=== PATIENT | female | born 1985 | race Caucasian/White ===

== ENCOUNTER 2016-04-06 10:52 | Emergency (ER) | payer OTHER ==
--- NOTE | 2016-04-06 11:28 | EDPHY ---
H & P Stated Complaint: tripped on ice hit back of head/nauseated/no loc HPI/ROS: CHIEF COMPLAINT: fall, head injury HISTORY OF PRESENT ILLNESS: slipped on the ice this morning striking the occiput. She was walking to the parking garage when she fell. She denies any loss of consciousness. At that time she felt lightheaded but did not have a syncopal episode. Since then she has had some headache, low back pain, muscle spasm and nausea. No vomiting. No weakness. No confusion. No visual changes. No hematoma, laceration or abrasion. She was concerned as her coworkers felt that she did not look right to them. At this time her pain is mild to moderate. It is worse with palpation. It does not radiate. There is soft tissue neck and back pain but no bony tenderness of the area. No use of blood thinners. No other associated complaints or modifying factors. REVIEW OF SYSTEMS: Ten systems reviewed and are negative unless otherwise noted in the HPI EXAMINATION General Appearance: Alert, no distress Head: normocephalic, atraumatic . No Cornejo sign. No raccoon eyes. No contusion, abrasion or laceration. No hematomas Eyes: Pupils equal and round, no conjunctival pallor or injection. EOM intact. ENT, Mouth: Mucous membranes moist . Uvula midline. Airway patent. No hemotympanum Neck: Normal inspection, supple, mild soft tissue tenderness of the left trapezius. No midline tenderness. No crepitus, step-off or deformity. Respiratory: Lungs are clear to auscultation . No wheezing, rhonchi or crackles. Cardiovascular: Regular rate and rhythm . No murmur. Symmetric radial, DP and PT pulses are 2+ Gastrointestinal: Abdomen is soft and nontender. No CVA tenderness. Back: Mild soft tissue tenderness of the left lower lumbar. No midline tenderness. No crepitus, step-off deformity. Range of motion intact. Neurological: A&O, Strength 5/5 in all limbs. No pronator drift. No nystagmus. Sensory intact. No focal deficits. Skin: Warm and dry, no rash . No hematoma, contusions, abrasion or laceration Extremities: Nontender, no pedal edema Psychiatric: Mood and affect normal DIFFERENTIAL DIAGNOSES: Including but not limited to closed head injury, concussion, muscle spasm, muscle strain, low back strain, low back spasm MDM: 11:25 a.m. fall with closed head injury. No loss of consciousness. No bruising, bleeding , Cornejo sign or raccoon eyes. She is alert and oriented in no acute distress with a full, Normal neuro exam. We did discuss closed head injuries and I did offer a CT scan of the head. The patient has declined. We did discuss the risks, benefits and alternatives, she is comfortable with this. I also feel that she does not warrant the radiation of a CT scan of the head at this time according to [place] rules for CT head. She will be discharged home with symptomatic medications and instructions to return to the ER should she have worsening headache, nausea, vomiting, weakness or confusion. She is comfortable with this plan and discharged home in stable condition. SUPERVISION: This patient was independently evaluated without the aide of supervising physician. Source: Patient Exam Limitations: No limitations - Personal History LMP (Females 10-55): 8-14 Days Ago Current Tetanus/Diphtheria Vaccine: Yes Tetanus Vaccine Date: 2011 - Medical/Surgical History Hx Asthma: No Hx Chronic Respiratory Disease: No Hx Diabetes: No Hx Cardiac Disease: No Hx Renal Disease: No Hx Cirrhosis: No Hx Alcoholism: No Hx HIV/AIDS: No Hx Splenectomy or Spleen Trauma: No Other PMH: c section. vertigo - Social History Smoking Status: Never smoked Constitutional: Initial Vital Signs Temperature (C) 97.5 F 04/06/16 10:55 Heart Rate 64 04/06/16 10:55 Respiratory Rate 17 04/06/16 10:55 Blood Pressure 107/82 H 04/06/16 10:55 O2 Sat (%) 98 04/06/16 10:55 O2 Delivery Mode Room Air Allergies/Adverse Reactions: triamcinolone acetonide [From Nasacort] Allergy (Verified 04/06/16 10:54) Home Medications: Medication Instructions Recorded CYCLOBENZAPRINE HCL [Flexeril] 5 mg PO TIDPRN PRN #20 tab 04/06/16 Departure - Departure Disposition: Home, Routine, Self-Care Clinical Impression: Head injury Qualifiers: Encounter type: initial encounter Qualifier Code: (S09.90XA) Unspecified injury of head, initial encounter Condition: Good Instructions: Head Injury (ED) Additional Instructions: Return to the ER for worsening headache, persistent nausea, any vomiting, weakness, confusion Referrals: Mandi Shipley MD [Primary Care Provider] - As per Instructions Stand Alone Forms: Work Excuse Prescriptions: CYCLOBENZAPRINE HCL [Flexeril] 5 mg PO TIDPRN PRN #20 tab PRN Reason: Spasms
[2016-04-06 11:57] VITALS: BP 115/73; PULSE 57; RESP 16; TEMP 98.4; O2SAT 97
== END 2016-04-06 11:45 | disposition home or self-care (01) ==
DX: S09.90XA Unspecified injury of head, initial encounter (principal); W00.0XXA Fall on same level due to ice and snow, initial encounter; Y92.89 Other specified places as the place of occurrence of the external cause; Y93.01 Activity, walking, marching and hiking